=== PATIENT | male | born 1955 | race American Indian/Alaskan Native ===

== ENCOUNTER 2020-09-17 11:38 | Outpatient (CLI) | payer OTHER ==
--- NOTE | 2020-09-17 12:36 | XRay Report ---
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 No discrete fracture identified. Signer Name: Robert Juan MD Signed: 09/17/2020 12:32 PM Workstation Name: [email or web address]
== END 2020-09-17 11:39 | disposition home or self-care (01) ==
LOC: XRAY 11:38
PROVIDERS: ATTEND Internal Medicine
DX: M16.12 Unilateral primary osteoarthritis, left hip (principal)